=== PATIENT | male | born 1945 | race Caucasian/White ===

== ENCOUNTER 2025-05-15 06:09 | Day surgery (SDC) | payer MEDICARE, OTHER, SELFPAY ==
[2025-05-15] VITALS (8 sets, daily range): BP systolic 100–125; BP diastolic 48–74; BMI 19.1
[2025-05-15] MEDS: TYLENOL 1000 MG PO (07:02)
[2025-05-15] MEDS: NORMOSOL-R/PLASMALYTE-A 1000 IV (07:07)
--- NOTE | 2025-05-15 07:23 | HP.FOC2 ---
Focused History & Physical
Chief Complaint
HPI:
Chief Complaint: Right inguinal hernia
HPI / Indication for Planned Procedure: This is an 79-year-old male with a symptomatic right inguinal hernia. Will plan for an open right inguinal hernia repair with mesh.
Relevant Past Medical History: Negative
Relevant Social History: Negative
Relevant Family History: Negative
Relevant Past Surgical History: Negative
Review of Systems
Review of Pertinent Systems: All Systems Negative
Medication
See Medication form for detailed medications: Yes
Medication List (including Herbals & OTC):
Chlorhexidine Gluconate/[place] 1 dose PO DAILY 05/13/25
Flax Seed Oil 1,000 mg PO DAILY 05/13/25
Glucosamine Chondroitin 1 dose PO DAILY 05/13/25
L-Arginine(alpha-ketoglutarat) 500 mg PO DAILY 05/13/25
Vitamin D3 2,400 units PO DAILY 05/13/25
acai connolly extract 500 mg capsule 500 mg PO DAILY 05/13/25
alpha lipoic acid 200 mg capsule 200 mg PO DAILY 05/13/25
amoxicillin 500 mg capsule 500 mg PO DAILY 05/13/25
ascorbic acid (vitamin C) 500 mg tablet (Vitamin C) 500 mg PO DAILY 05/13/25
beta carotene 15 mg PO DAILY 05/13/25
chromium 200 mcg PO DAILY 05/13/25
cinnamon bark 500 mg capsule (Cinnamon) 500 mg PO DAILY 05/13/25
cod liver oil 1 cap PO DAILY 05/13/25
ferrous sulfate 325 mg (65 mg iron) tablet (iron) 325 mg PO .3 TIMES A WEEK 05/13/25
folic acid 1 mg tablet 1 mg PO DAILY 05/13/25
garlic oil 3 mg PO DAILY 05/13/25
ginkgo biloba 40 mg tablet 40 mg PO DAILY 05/13/25
green tea extract 1 dose PO DAILY 05/13/25
ketoconazole 2 % topical cream 1 applic topical DAILY 05/13/25
lutein 6 mg capsule 6 mg PO DAILY 05/13/25
lysine 1,000 mg tablet 1,000 mg PO DAILY 05/13/25
magnesium 300 mg PO DAILY 05/13/25
milk thistle 140 mg PO DAILY 05/13/25
omega 7-ccf-lgs-fish oil 1,000 mg (120 mg-180 mg) capsule (Fish Oil) 1 cap PO TID 05/13/25
simethicone 80 mg chewable tablet 80 mg PO QID 05/13/25
tamsulosin 0.4 mg capsule 0.4 mg PO DAILY 05/13/25
triamcinolone acetonide 1 dose PO DAILY 05/13/25
turmeric 500 mg PO DAILY 05/13/25
vitamin A 2,400 mcg capsule 4,800 mcg PO DAILY 05/13/25
vitamin B complex 1 dose PO DAILY 05/13/25
vitamin E 100 units PO DAILY 05/13/25
Allergies and Reactions
Patient has Allergies: Yes
Noted Allergies and Reactions:
Allergy/AdvReac Type Severity Reaction Status Date / Time
No Known Allergies Allergy Unverified 05/15/25 06:50
Pertinent Physical Exam
All Other Systems: Negative
Head/Neck: Normal
Diagnosis / Assessment
This is an 79-year-old male with a symptomatic right inguinal hernia. Will plan for an open right inguinal hernia repair with mesh.
Plan / Procedure
This is an 79-year-old male with a symptomatic right inguinal hernia. Will plan for an open right inguinal hernia repair with mesh.
Anesthesia/Sedation to be done by Anesthesia Provider: Yes
--- NOTE | 2025-05-15 09:17 | W.IMMPOSTOP ---
Surgical Immed Post Op Note
-
Primary Surgeon: Shankar Rogers MD
Assisting Surgeon: None
Pre-op Diagnosis: Right inguinal
Post-op Diagnosis: Same
Procedure Performed: Open right inguinal hernia repair with mesh
Anesthesia Type: General
Specimen / Cultures: Right inguinal nerve
Estimated Blood Loss: 3 cc
Complications: None
Operative Findings: Medium sized direct inguinal hernia, repaired in a Bassini like fashion followed by a 15 x 7.5 cm mesh onlay in the standard Dayday fashion. No indirect component. No cord lipoma.
--- NOTE | 2025-05-15 09:19 | OR.RPT ---
Operative Report
Operative Report
Patient Name: Sav Patterson
: 1945
Date of Operation: 05/15/2025
Preoperative Diagnosis: Right inguinal hernia
Postoperative Diagnosis: Same
Procedure(s):
1. Open right inguinal hernia repair with mesh (82041)
2. Pragmatic right inguinal neurectomy x 1 (98891)
Surgeon(s):
Dr. Rogers
[employer] Day Worker(s):
LUCILLE Brady
Anesthesia: General, LMA
Estimated Blood Loss: 3 cc
Urine Output: None
Drains/Lines/Implants: 15x7.5cm Bard Soft uncoated polypropylene Mesh cut to size
Specimen / Cultures:
Inguinal nerves x 1
Indication for surgery: The patient has a history of groin pain and some asymmetry noted on exam and was found to have a right inguinal Hernia. Following review of therapeutic options they elected to undergo an open repair
Operative Findings: Medium sized direct inguinal hernia, repaired in a Bassini like fashion followed by a 15 x 7.5 cm mesh onlay in the standard Dayday fashion. No indirect component. No cord lipoma.
Details of the operation:
After induction of general anesthesia, the patient was clipped, prepped and draped in the supine position. A team timeout was performed confirming administration of DVT prophylaxis, IV antibiotics and SCDs. The ASIS and pubic tubercle were marked
and an incision was chosen along the course of a skin line. The skin was anesthetized with Lidocaine. An incision was made through the skin line and dissection carried down through subcutaneous tissue and Ham's fascia. The superficial epigastric
vein was identified and ligated. A Small Donte wound retractor was used to provide exposure. The external oblique fibers were then divided in the direction of travel. The ilioinguinal nerve was identified and resected at the level of the internal
oblique muscle fibers. Dissection was carried down to the floor, which revealed the following:
At the site of the indirect (internal) ring, there was no hernia.
There was a medium sized direct inguinal hernia which was imbricated using 2 [id number] sutures approximating the conjoined tendon down to the inguinal ligament in a Bassini like fashion.
No cord lipoma was identified.
The floor of the canal was then reconstructed by placing a 15 x 7.5 cm Bard soft uncoated polypropylene mesh trimmed to size and secured it in place with interrupted 0-PDS sutures medially at the pubic tubercle, inferiorly along the inguinal
ligament, laterally/superiorly in the conjoint tendon. A slit was made in the mesh just wide enough to accommodate the cord this was also reapproximated with the PDS suture. Care was taken not to injure or entrap any nerves. The external oblique
fibers were then closed using a running 2-0 Vicryl suture. Ham's fascia was then closed with interrupted 3-0 Vicryl suture. The skin was closed in layers with interrupted 3-0 vicryl deep dermals followed by a running subcuticular 4-0 Monocryl
followed by dermabond. The patient returned to the Recovery Room in stable condition. Sponge and instrument counts were correct.
I was the attending physician and performed the procedure with assistance of the PA above. Their assistance was required due to the complexity of the procedure. During the procedure they assisted with retraction, resection, and closure of the
wound.. I was present for all portions of the case, excluding skin closure.
Shankar Rogers MD
== END 2025-05-15 11:10 | disposition home or self-care (01) ==
LOC: SDS 06:09
PROVIDERS: ATTENDING PHYSICIAN Surgery
DX: K40.90 Unilateral inguinal hernia, without obstruction or gangrene, not specified as recurrent (principal)
CPT/HCPCS: 49505; 64774; 88304